=== PATIENT | male | born 1955 | race Caucasian/White ===

== ENCOUNTER 2016-12-17 12:51 | Inpatient (IN) | payer OTHER ==
[~2016-12-17] VITALS: Ht 165.1 cm; Wt 70.3 kg
--- NOTE | 2016-12-17 15:24 | DIAGNOSTIC IMAGING REPORT ---
PROCEDURE: XR ABDOMEN 1 VIEW UPRIGHT INDICATION: ABDOMINAL PAIN TECHNIQUE: AP upright view. COMPARISON: None. FINDINGS: There are several moderately dilated loops of small bowel with air-fluid levels. Small amount of air in the large bowel. There is no free air or mass. Mild levoscoliosis. IMPRESSION: 1. Moderate small bowel dilation with air-fluid levels. This may represent gastroenteritis, focal ileus or partial small bowel obstruction. 2. Results discussed with Dr. Brand
--- NOTE | 2016-12-17 16:37 | DIAGNOSTIC IMAGING REPORT ---
PROCEDURE: CT ABDOMEN/PELVIS W/O CONTRAST INDICATION: Abdominal pain, WBC 15.4. Initial encounter. TECHNIQUE: Noncontrast axial images were obtained of the entire abdomen and pelvis with sagittal and coronal reformations. COMPARISON: KUB 12/17/2016 FINDINGS: ABDOMEN: Splenectomy with small splenules. Multiple moderately dilated loops of small bowel with air-fluid levels. Transition point in the mid pelvis. Distal ileum has a normal caliber. Large amount of stool throughout the large bowel. Lung base are clear. Heart size is normal. Liver, gallbladder, pancreas, adrenal glands and the kidneys are normal. Mild atherosclerosis of the aorta. Old right rib fractures. PELVIS: Appendectomy. Normal prostate and bladder. No pelvic mass or free fluid. Severe T12-L1 degenerative changes. IMPRESSION: 1. Findings suggestive of a partial small bowel obstruction. Gastroenteritis is another possibility 2. Splenectomy and appendectomy 3. Results discussed Dr. Brand All CT scans at this facility use dose modulation, iterative reconstruction, and/or weight-based dosing when appropriate to reduce radiation dose to as low as reasonably achievable.
--- NOTE | 2016-12-17 16:40 | ED ORDER SUMMARY ---
..... Patient: AMANDA PHOENIX OrderSheet [facility] VisitID: [id number] [place] [address] 61y, M Registration Date/Time: 12/17/2016 ORDER SHEET Weight: 70.3 kg (stated) Allergies: blood pressure meds, Flu Shot GENERAL ORDERS: Abdomen 1V Upright Urgent (14:06 12/17/2016 Clare JENNINGS) (Ack 14:07 RKkalebuga) (14:54 RKaruga) CBC w Diff Urgent (14:06 12/17/2016 Clare JENNINGS) (Ack 14:07 Ravi) (14:32 JSimbeck R.N.) CMP Urgent (14:12/17/2016 Clare JENNINGS) (Ack 14:07 Ravi) (14:32 JSimbeck R.N.) Amylase Urgent (14:06 12/17/2016 Clare JENNINGS) (Ack 14:07 Ravi) (14:32 JSimbeck R.N.) Lipase Urgent (14:06 12/17/2016 Clare JENNINGS) (Ack 14:07 Ravi) (14:32 BHAVNAimbeck R.N.) CT Abd/Pel w Cont (No) (pending) Urgent (15:34 12/17/2016 Clare JENNINGS) (Ack 15:36 Ravi) (Cancelled: Other15:48 Clare JENNINGS) CT Abd/Pel wo Cont Urgent (15:49 12/17/2016 Clare JENNINGS) (Ack 16:02 Ravi) (16:24 JSimbeck R.N.) NG Tube (16:40 12/17/2016 Clare JENNINGS) (17:23 BHAVNAimbeck R.N.) MEDICATION ORDERS: IV FLUIDS: IV NS : initial bolus 1000 mL (1000 mL/hr), then none - for X1 (NOW); Routine (14:05 12/17/2016 Clare JENNINGS) (14:31 JSimbeck R.N.) Zofran IV 4 mg (NOW) (14:06 12/17/2016 Clare JENNINGS) (Ack 14:32 JSimbeck R.N.) (14:44 Zachery R.N.) Demerol IV 12.5 mg (NOW) (16:40 12/17/2016 Clare JENNINGS) (17:23 Zachery R.N.) ORDER SHEET NOTES: [Electronically signed by Neftaly Brand MD (19:59 12/17/2016)] [Electronically signed by Edith Hernández (20:26 12/17/2016)] [Electronically locked/signed by Edith Hernández (20:26 12/17/2016)]
--- NOTE | 2016-12-17 16:40 | ED NURSING NOTES ---
Clinical Report - Nurses [facility] [place] [address] 12/17/2016 12:56 Patient: AMANDA PHOENIX [facility]#: [id number] TRIAGE Triage time 13:05 Dec 17 2016. Acuity: LEVEL 3. Chief Complaint: ABDOMINAL PAIN and (pain woke patient up at 5AM). 13:15 12/17/16. SEPSIS SCREEN: Sepsis Screen. Negative (no infection suspected/documented). JUDITH COMA SCORE: Judith Coma Scale: 15- eyes open spontaneously (4); best verbal response- oriented x 4 (5); best motor response- obeys commands (6). --13:16 Allie Piedra R.N. 13:06 12/17/16. BP: 137/90. HR: 109. RR: 20. O2 saturation: 97% on room air. Temp: 99.3 F (oral). Pain level now: 10. --13:16 Allie Piedra R.N. Weight: 70.3 kg stated. Height/Length: 65 inches Per Patient. BMI: 25.8. --13:14 Allie Piedra R.N. Medications BuPROPion HBr Oral. CloNIDine HCl Oral. Combivent Respimat Inhalation. Enalapril Maleate Oral. Flomax Oral. Gabapentin Oral. Methocarbamol Oral. PROzac Oral. TraZODone HCl Oral. --13:10 Allie Piedra R.N. Allergies 2 blood pressure meds. Flu Shot. --13:10 Allie Piedra R.N. History Historian: spouse and patient. The patient has had nausea, vomiting, diarrhea and abdominal pain. 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 SOCIAL HX: Former smoker, end date 2011. History of drug use: marijuana. (daily). No alcohol use. ABUSE ASSESSMENT: No report of abuse. --13:16 Allie Piedra R.N. PROBLEMS: Cellulitis. Puncture Wound. Allergies. Depression. Tongue carcinoma. Hypertension. PTSD. COPD - Chronic Obstructive Pulmonary Disease. --13:11 Allie Piedra R.N. ADDITIONAL SURGERIES: Back Surgery. Hand. Splenectomy. Tongue. --13:11 Allie Piedra R.N. Interventions ID band on patient. To treatment room. --13:16 Allie Piedra R.N. PHYSICAL ASSESSMENT 13:19 12/17/16. Ambulatory to room. GENERAL / NEURO / PSYCH: Alert. Oriented X 4. Appears in no acute distress. HEENT: Mucous membranes are pink. RESPIRATORY: Respirations not labored. CVS: Capillary refill less than 2 seconds. GI / : Abdomen soft. Abdominal tenderness present. Guarding present in the left upper quadrant. No rebound or rigidity. Hyperactive bowel sounds in all quadrants. SKIN: Skin is warm and dry. --13:19 Allie Piedra R.N. NURSING PROGRESS NOTES 13:20 12/17/16. Pulse oximeter and NIBP monitor placed on patient; monitor alarms on. Patient gowned. Two patient identifiers checked. Call light placed in reach. Side rails up x 1. Bed placed in lowest position. Brakes of bed on. Patient ready for evaluation- chart flagged. --13:20 Allie Piedra R.N. 14:25 12/17/2016 Site #1 started via IV in the right antecubital space with an 20g angiocath, with aseptic technique and good blood return; one attempt. Blood drawn: rainbow set. Labeled in the presence of the patient and sent to the lab. Saline lock flushed with 10 mL saline. --14:31 Moreno Gomez R.N. 14:28 12/17/2016 Started bag #1 1000 mL IV Fluids IV NS (Saline); bolus of 1000 mL over 1 hour(s) via site #1. Allergies verified and confirmed 5 rights. IV patency established. IV site checked: no pain, redness, or swelling. IV flushed thoroughly pre- and post-medication administration. --14:31 Moreno Gomez R.N. 14:32 12/17/2016 Zofran (Ondansetron HCl) IVP 4 mg given over 1 minute(s) via site #1. Allergies verified and confirmed 5 rights. IV patency established. IV site checked: no pain, redness, or swelling. IV flushed thoroughly pre- and post-medication administration. IVP given by RN. --14:44 Moreno Gomez R.N. 13:30 12/17/16. BP: 128/82. HR: 102. O2 saturation: 93% on room air. --14:51 Allie Piedra R.N. 14:00 12/17/16. BP: 121/68. HR: 100. O2 saturation: 92% on room air. --14:52 Allie Piedra R.N. 14:30 12/17/16. BP: 152/84. HR: 96. O2 saturation: 93% on room air. --14:52 Allie Piedra R.N. 16:00 12/17/2016 IV Fluids IV NS Discontinued: bag #1 infused. Total amount infused: 1000 mL. IV patency established. IV site checked: no pain, redness, or swelling. IV flushed thoroughly. --16:26 Iris Palomares R.N. 16:22 12/17/16. BP: 150/89. HR: 90. RR: 18. O2 saturation: 95%. Pain level now 0/10. --16:27 Iris Palomares R.N. Patient waiting for CT results. --16:27 Iris Palomares R.N. 17:00 12/17/2016 Demerol (Meperidine HCl) IVP 12.5 mg given over 1 minute(s) via site #1. Allergies verified and confirmed 5 rights. IV patency established. IV site checked: no pain, redness, or swelling. IV flushed thoroughly pre- and post-medication administration. IVP given by RN. --17:23 Moreno Gomez R.N. 17:22 12/17/16. ( Unable to pass NGT due to a possible obstruction. Pt has had reconstructive surgery in his throat, tongue, and neck for tongue cancer. notified.). --17:22 Moreno Gomez R.N. 16:30 12/17/16. BP: 126/78. HR: 99. RR: 16. O2 saturation: 94% on room air. Pain level now: 4/10. --18:07 Moreno Gomez R.N. 17:00 12/17/16. BP: 148/90. HR: 103. RR: 16. O2 saturation: 94% on room air. Pain level now: 02/21. --18:09 Moreno Gomez R.N. 17:30 12/17/16. BP: 148/77. HR: 95. RR: 16. O2 saturation: 94% on room air. Pain level now: 12/24. --18:09 Moreno Gomez R.N. 18:00 12/17/16. BP: 153/82. HR: 92. RR: 16. O2 saturation: 94% on room air. Pain level now: 0/10. Additional comments: (asleep). --18:10 Moreno Gomez R.N. 19:00. :patient confirmed. Clean catch urine collected; sample sent to lab. Specimen labeled in the presence of the patient. --19:01 Rosalina Villareal R.N. 19:22 12/17/16. Care transferred and report given (LA Sharma). --19:22 Moreno Gomez R.N. 19:33 12/17/2016 Demerol (Meperidine HCl) IVP 12.5 mg given over 1 minute(s) via site #1. Allergies verified and confirmed 5 rights. IV patency established. IV site checked: no pain, redness, or swelling. IV flushed thoroughly pre- and post-medication administration. IVP given by RN. --19:33 Edith Hernández. DISPOSITION / DISCHARGE Departure time: 1939. Transported via stretcher by transport team. Report was given to a nurse via a phone call. Report included patient's care, treatment, medications, reviewed medication reconcilliation, and condition (including any recent changes or anticipated changes). All questions were answered. Report was acknowledged and care was transferred. Patient's personal items; items were placed in belongings bag and given to the patient. --19:34 Edith Hernández. Locked/Released at 12/17/2016 20:26 by Edith Hernández,
--- NOTE | 2016-12-17 16:40 | ED ORDER SUMMARY ---
..... Patient: AMANDA PHOENIX OrderSheet [facility] VisitID: [id number] [place] [address] 61y, M Registration Date/Time: 12/17/2016 ORDER SHEET Weight: 70.3 kg (stated) Allergies: blood pressure meds, Flu Shot GENERAL ORDERS: Abdomen 1V Upright Urgent (14:06 12/17/2016 Clare JENNINGS) (Ack 14:07 RKkalebuga) (14:54 RKaruga) CBC w Diff Urgent (14:06 12/17/2016 Clare JENNINGS) (Ack 14:07 Ravi) (14:32 JSimbeck R.N.) CMP Urgent (14:12/17/2016 Clare JENNINGS) (Ack 14:07 Ravi) (14:32 JSimbeck R.N.) Amylase Urgent (14:06 12/17/2016 Clare JENNINGS) (Ack 14:07 Ravi) (14:32 JSimbeck R.N.) Lipase Urgent (14:06 12/17/2016 Clare JENNINGS) (Ack 14:07 Ravi) (14:32 BHAVNAimbeck R.N.) CT Abd/Pel w Cont (No) (pending) Urgent (15:34 12/17/2016 Clare JENNINGS) (Ack 15:36 Ravi) (Cancelled: Other15:48 Clare JENNINGS) CT Abd/Pel wo Cont Urgent (15:49 12/17/2016 Clare JENNINGS) (Ack 16:02 Ravi) (16:24 JSimbeck R.N.) NG Tube (16:40 12/17/2016 Clare JENNINGS) (17:23 BHAVNAimbeck R.N.) MEDICATION ORDERS: IV FLUIDS: IV NS : initial bolus 1000 mL (1000 mL/hr), then none - for X1 (NOW); Routine (14:05 12/17/2016 Clare JENNINGS) (14:31 JSimbeck R.N.) Zofran IV 4 mg (NOW) (14:06 12/17/2016 Clare JENNINGS) (Ack 14:32 JSimbeck R.N.) (14:44 Zachery R.N.) Demerol IV 12.5 mg (NOW) (16:40 12/17/2016 Clare JENNINGS) (17:23 Zachery R.N.) ORDER SHEET NOTES: [Electronically signed by Neftaly Brand MD (19:59 12/17/2016)] [Electronically signed by Edith Hernández (20:26 12/17/2016)] [Electronically locked/signed by Edith Hernández (20:26 12/17/2016)]
--- NOTE | 2016-12-17 16:40 | ED CLINICAL REPORT ---
Clinical Report - Physicians/Mid Levels [facility] [address] [place] [address] 12/17/2016 12:56 [id number] Time Seen: 13:34 Dec 17 2016. Arrived- By private vehicle. Historian- patient. CPT: ER phys charges level 5 (#[id number]). HISTORY OF PRESENT ILLNESS Chief Complaint: ABDOMINAL PAIN. At its maximum, severity described as severe. When seen in the E.D., severity described as moderate. Modifying factors- worsened by movement. Not relieved by anything. It is described as "pain" and it is described as located in the periumbilical area. This started today pain woke patient up at 5AM). The patient has had nausea, vomiting, diarrhea and abdominal pain. and is still present. The patient has had nausea, vomiting and diarrhea. Similar symptoms previously: None. Recent medical care: Not recently seen/assessed. REVIEW OF SYSTEMS No constipation, black stools, hematemesis, difficulty with urination or pain with urination. No urinary frequency, fever, sore throat or throat or chest pain. No difficulty breathing, cough, joint pain, skin rash or chills. No back pain, weakness, diabetic symptoms or easy bruising. All systems otherwise negative, except as recorded above. PAST HISTORY Cellulitis. Puncture Wound. Allergies. Depression. Tongue carcinoma.: With rconstruction of the throat and tongue. Hypertension. PTSD. COPD - Chronic Obstructive Pulmonary Disease. ADDITIONAL SURGERIES: Back Surgery. Hand. Splenectomy. Tongue. Medications: BuPROPion HBr Oral. CloNIDine HCl Oral. Combivent Respimat Inhalation. Enalapril Maleate Oral. Flomax Oral. Gabapentin Oral. Methocarbamol Oral. PROzac Oral. TraZODone HCl Oral. Allergies: 2 blood pressure meds. Flu Shot. SOCIAL HISTORY Former smoker. History of drug use: marijuana. No alcohol use. ADDITIONAL NOTES The nursing notes have been reviewed. PHYSICAL EXAM Vital Signs: 12/17/2016 13:06 BP: 137/90. HR: 109. RR: 20. O2 saturation: 97%. Temp: 99.3 F. Pain level now: 02/21. Appearance: Alert. Appears to be in pain. Patient in moderate distress. Eyes: Eyes normal inspection. ENT: Pharynx normal. Neck: Normal inspection. Neck supple. CVS: Normal heart rate and rhythm. Heart sounds normal. Pulses normal. Respiratory: No respiratory distress. Breath sounds normal. Chest nontender. Abdomen: Soft. Moderate tenderness in the periumbilical area. Abnormal bowel sounds: diminished. No mass. Back: Normal inspection. Skin: Skin warm. Normal skin color. No rash. Extremities: Extremities exhibit normal ROM. No lower extremity edema. Neuro: Oriented X 3. No motor deficit. No sensory deficit. Reflexes normal. LABS, X-RAYS, AND EKG KUB: (Air-fluid levels consistent with gastroenteritis, early SBO and ileus). Views: erect AP. Technique: good. The X-rays were independently viewed by me, interpreted by the radiologist and discussed with the radiologist. Abdominal CT: Partial bowel obstruction. Spleen gone. APPY gone. Abdominal CT performed with contrast and without contrast. The study was independently viewed by me, interpreted by the radiologist and discussed with the radiologist. Laboratory Tests: CBC w Diff: (SOCO: 12/17/2016 14:25) ( MsgRcvd 12/17/2016 15:18) Final results Test Result Flag Units (Reference) WHITE BLOOD COUNT 15.4 H K/uL (4.5-11.5) RED BLOOD COUNT 4.63 M/uL (4.50-5.90) HEMOGLOBIN 13.6 gm/dL (13.5-17.5) HEMATOCRIT 41.6 % (41.0-53.0) MEAN CELL VOLUME 90 fL (80-100) MEAN CORPUSCULAR HGB 29 pg (26-34) MEAN CORPUSCULAR HGB CONC 33 g/dL (31-37) RED CELL DISTRIBUTION WIDTH 14.1 % (11.6-14.8) PLATELET COUNT 381 K/uL (150-400) POLY % 80 H % (50-75) BAND % 2 % (0-8) LYMPH 8 L % (25-40) MONO 8 % (3-14) EOSINOPHIL % 1 % (0-4) BASOPHIL % 1 % (0-2) METAMYELOCYTE % 0 % (0-1) MYELOCYTE 0 % (0-1) OTHER CELL TYPE 0 RBC MORPHOLOGY NORMOCHROMIC~~NORMOCYTIC CMP: (SOCO: 12/17/2016 14:25) ( MsgRcvd 12/17/2016 15:36) Final results Test Result Flag Units (Reference) GLUCOSE 118 H mg/dL (70-110) BUN 20 H mg/dL (7-18) CREATININE 0.8 mg/dL (0.6-1.3) Estimated GFR >60 mL/min Estimated GFR- >60 mL/min Note: Persistent reduction over 3 months in eGFR<60 mL/min/1.73 m2 defines CKD. Patients with eGFR values>=60 mL/min/1.73 m2 may also have CKD if evidence ofpersistent proteinuria. Additional information may be foundat www.kidney.org. SODIUM 143 mmol/L (136-145) POTASSIUM 4.0 mmol/L (3.5-5.1) CHLORIDE 107 mmol/L (98-107) CARBON DIOXIDE 26 mmol/L (21-32) CALCIUM 8.6 mg/dL (8.5-10.1) TOTAL PROTEIN 7.2 g/dL (6.4-8.2) ALBUMIN 3.7 g/dL (3.3-5.0) BILIRUBIN, TOTAL 0.3 mg/dL (0.0-1.0) ALKALINE PHOSPHATASE 74 U/L (46-116) AST (SGOT) 29 U/L (15-37) ALT (SGPT) 32 U/L (12-78) LIPASE 327 U/L (73-393) AMYLASE 66 U/L (25-115) . PROGRESS AND PROCEDURES Course of Care: IV NS Zofran 4 mg IV Demerol 12.5 mg IV Attempt at NG failed due to sclerotic and changed head and neck anatomy. Demerol 12.5 mg IV. Discussed case with on-call health care provider, (Jesus). Reviewed test results. Agreed upon treatment plan and decision to admit. Health care provider will see patient in hospital. Patient/family counseled. Old medical records ordered. Disposition orders written. Disposition: Admitted to Acute Care. CLINICAL IMPRESSION Partial small bowel obstruction associated with intestinal bands / adhesions. (Electronically signed by Neftaly Brand MD 12/17/2016 19:59)
[2016-12-17 20:17] VITALS: BP 134/77
--- NOTE | 2016-12-17 20:26 | ED MAR SUMMARY ---
..... Medication Administration Record [facility] [address] [place] [address] Patient: AMANDA PHOENIX Visit ID: [id number] 61y, M Weight: 70.3 kg Height/Length: 65 in BMI: 25.8 ALLERGIES: 2 blood pressure meds, Flu Shot Start 14:28 12/17/2016 Moreno Gomez R.N., Stop 16:00 12/17/2016 Iris Palomares R.N. Medication Administered: IV NS (SALINE), Dose: IV Fluids, Bolus: 1000 mL over 1 hour(s), Dispensed: 1000 mL bag, Site: #1 right AC. Medication Ordered: IV NS : initial bolus 1000 mL (1000 mL/hr), then none - for X1 (NOW); Routine. Given 14:32 12/17/2016 Moreno Gomez R.N. Medication Administered: ZOFRAN [IVP] (ONDANSETRON HCL), Dose: 4 mg IVP over 1 minute(s), Site: #1 right AC. Medication Ordered: Zofran IV 4 mg (NOW). Given 17:00 12/17/2016 Moreno Gomez R.N. Medication Administered: DEMEROL [IVP] (MEPERIDINE HCL), Dose: 12.5 mg IVP over 1 minute(s), Site: #1 right AC. Medication Ordered: Demerol IV 12.5 mg (NOW). Given 19:33 12/17/2016 Edith Hernández, Medication Administered: DEMEROL [IVP] (MEPERIDINE HCL), Dose: 12.5 mg IVP over 1 minute(s), Site: #1 right AC. Medication Ordered: Demerol IV 12.5 mg (NOW).
--- NOTE | 2016-12-17 20:26 | ED DISCHARGE INSTRUCTIONS ---
Patient: AMANDA PHOENIX General Instructions [facility] VisitID: [id number] [address] [place] [address] 61y, M Registration Date/Time: 12/17/2016 Partial small bowel obstruction associated with intestinal bands / adhesions. (Electronically signed by Neftaly Bradn MD 12/17/2016 19:59)
--- NOTE | 2016-12-17 20:26 | ED MED RECONCILIATION SUMMARY ---
Patient: AMANDA PHOENIX Medication Reconciliation Report [facility] VisitID: [id number] [address] [place] [address] 61y, M Registration Date/Time: 12/17/2016 Weight: 70.3 kg Height/Length: 65 in. BMI: 25.8 ALLERGIES: 2 blood pressure meds, Flu Shot The patient's Home Medications are listed below: THE FOLLOWING MEDICATIONS NEED TO BE RECONCILED: BuPROPion HBr Oral CloNIDine HCl Oral Combivent Respimat Inhalation Enalapril Maleate Oral Flomax Oral Gabapentin Oral Methocarbamol Oral PROzac Oral TraZODone HCl Oral The source(s) of the original Home Medication information: Not obtained. The following Medications were given to the patient in the Emergency Department: IV NS IV Fluids bolus 1000 mL over 1 hour(s), administered: 12/17/2016 2:28:00 PM Zofran [IVP] IVP 4 mg, administered: 12/17/2016 2:32:00 PM Demerol [IVP] IVP 12.5 mg, administered: 12/17/2016 5:00:00 PM Demerol [IVP] IVP 12.5 mg, administered: 12/17/2016 7:33:00 PM The following Medications were prescribed to the patient: None.
--- NOTE | 2016-12-17 20:26 | ED MED RECONCILIATION SUMMARY ---
Patient: AMANDA PHOENIX Medication Reconciliation Report [facility] VisitID: [id number] [address] [place] [address] 61y, M Registration Date/Time: 12/17/2016 Weight: 70.3 kg Height/Length: 65 in. BMI: 25.8 ALLERGIES: 2 blood pressure meds, Flu Shot The patient's Home Medications are listed below: THE FOLLOWING MEDICATIONS NEED TO BE RECONCILED: BuPROPion HBr Oral CloNIDine HCl Oral Combivent Respimat Inhalation Enalapril Maleate Oral Flomax Oral Gabapentin Oral Methocarbamol Oral PROzac Oral TraZODone HCl Oral The source(s) of the original Home Medication information: Not obtained. The following Medications were given to the patient in the Emergency Department: IV NS IV Fluids bolus 1000 mL over 1 hour(s), administered: 12/17/2016 2:28:00 PM Zofran [IVP] IVP 4 mg, administered: 12/17/2016 2:32:00 PM Demerol [IVP] IVP 12.5 mg, administered: 12/17/2016 5:00:00 PM Demerol [IVP] IVP 12.5 mg, administered: 12/17/2016 7:33:00 PM The following Medications were prescribed to the patient: None.
--- NOTE | 2016-12-17 20:26 | ED MAR SUMMARY ---
..... Medication Administration Record [facility] [address] [place] [address] Patient: AMANDA PHOENIX Visit ID: [id number] 61y, M Weight: 70.3 kg Height/Length: 65 in BMI: 25.8 ALLERGIES: 2 blood pressure meds, Flu Shot Start 14:28 12/17/2016 Moreno Gomez R.N., Stop 16:00 12/17/2016 Iris Palomares R.N. Medication Administered: IV NS (SALINE), Dose: IV Fluids, Bolus: 1000 mL over 1 hour(s), Dispensed: 1000 mL bag, Site: #1 right AC. Medication Ordered: IV NS : initial bolus 1000 mL (1000 mL/hr), then none - for X1 (NOW); Routine. Given 14:32 12/17/2016 Moreno Gomez R.N. Medication Administered: ZOFRAN [IVP] (ONDANSETRON HCL), Dose: 4 mg IVP over 1 minute(s), Site: #1 right AC. Medication Ordered: Zofran IV 4 mg (NOW). Given 17:00 12/17/2016 Moreno Gomez R.N. Medication Administered: DEMEROL [IVP] (MEPERIDINE HCL), Dose: 12.5 mg IVP over 1 minute(s), Site: #1 right AC. Medication Ordered: Demerol IV 12.5 mg (NOW). Given 19:33 12/17/2016 Edith Hernández, Medication Administered: DEMEROL [IVP] (MEPERIDINE HCL), Dose: 12.5 mg IVP over 1 minute(s), Site: #1 right AC. Medication Ordered: Demerol IV 12.5 mg (NOW).
--- NOTE | 2016-12-17 20:26 | ED DISCHARGE INSTRUCTIONS ---
Patient: AMANDA PHOENIX General Instructions [facility] VisitID: [id number] [address] [place] [address] 61y, M Registration Date/Time: 12/17/2016 Partial small bowel obstruction associated with intestinal bands / adhesions. (Electronically signed by Neftaly Brand MD 12/17/2016 19:59)
--- NOTE | 2016-12-18 01:26 | NUR ---
Attempted NGT placement at 0010. Unsuccessful with both right and left nare. Tubing looped around in pt's throat and mouth. Although very painful pt was cooperative with attempts.
[2016-12-18] MEDS ORDERED: BUPROPION HCL100 M2 PO (01:36)
[2016-12-18] MEDS ORDERED: CATAPRES0.1 MG PO (01:37)
[2016-12-18] MEDS ORDERED: COMBIVENT RESPIMAT IN (01:37)
[2016-12-18] MEDS ORDERED: FLOMAX0.4 MG PO (01:38)
[2016-12-18] MEDS ORDERED: ENALAPRIL MALEA20 MG PO (01:38)
[2016-12-18] MEDS ORDERED: GABAPENTIN100 MG PO (01:39)
[2016-12-18] MEDS ORDERED: METHOCARBAMOL500 MG PO (01:39)
[2016-12-18] MEDS ORDERED: TRAZODONE HCL50 MG PO (01:40)
[2016-12-18] MEDS ORDERED: PROZAC20 MG PO (01:40)
--- NOTE | 2016-12-18 01:58 | NUR ---
Taken over this patient's care. He still feels nauseous and complains of 6/10 abdo pain. Staff was unsuccessful putting down the NG tube. He remains NPO and is independent doing his oral care. SINGH.
[2016-12-18 03:32] VITALS: BP 129/87
[2016-12-18 07:51] VITALS: BP 140/74
[2016-12-18 10:45] VITALS: BP 152/78
--- NOTE | 2016-12-18 11:37 | Provider's Discharge Care Plan ---
Problem, Goal, Plan Problem List 1. Small bowel obstruction due to adhesions
--- NOTE | 2016-12-18 11:37 | Provider's Discharge Care Plan ---
Problem, Goal, Plan Problem List 1. Small bowel obstruction due to adhesions
--- NOTE | 2016-12-18 12:00 | NUR ---
PT STATES, "I'M FEELING MUCH BETTER TODAY AND I WANT TO SEE DR VIZCARRA AND GO HOME." DR VIZCARRA TO ASSESS AND STARTED PT ON CLEAR LIQUID DIET. IF TOLERATES CLEAR LIQUIDS WITHOUT NAUSEA AND VOMITING TO ADVANCE TO FULL LIQUIDS. WCTM.
--- NOTE | 2016-12-18 14:40 | NUR ---
TOLERATED FULL LIQUID DIET WITH NO N/V OR ABD PAIN. TO BE DC'D HOME. WENT OVER DC INSTRUCTIONS, NO PRESCRIPTIONS TO GIVE AND EDUCATION GIVEN. INHALER GIVEN BACK TO PT BEFORE DISCHARGE. ESCORTED OUT VIA WC TO PRIVATE CAR HOME.
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
== END 2016-12-18 14:40 | disposition home or self-care (01) | DRG 390 ==
LOC: ED SRH 12:51 → TRANS SRH 17:00 → ACUTE2 SRH 19:40
PROVIDERS: ADMIT Emergency Medicine
DX: K56.5 Intestinal adhesions [bands] with obstruction (postinfection) (principal); Z85.810 Personal history of malignant neoplasm of tongue; I10 Essential (primary) hypertension; J44.9 Chronic obstructive pulmonary disease, unspecified; F43.12 Post-traumatic stress disorder, chronic; Z89.111 Acquired absence of right hand; Z90.81 Acquired absence of spleen
CPT/HCPCS: 90100; 91643; 92235; 92530; 95059